=== PATIENT | male | born 1970 | race African-American/Black ===

== ENCOUNTER 2019-06-27 15:32 | Outpatient (CLI) | payer OTHER ==
--- NOTE | 2019-06-27 16:01 | RAD ---
KUB INDICATION: Constipation COMPARISON: 06/27/2003 FINDINGS: Bowel gas: Nonspecific but without overt appearance of obstruction. There is a mild amount retained s tool within the colon. Lung bases: Clear. Additional findings: No suspicious calcification demonstrated. Osseous structures: Compression abnormality of L3 is stable. IMPRESSION: 1. Mild amount retained stool within the colon.
== END 2019-06-27 15:33 | disposition home or self-care (01) ==
LOC: RAD 15:32
PROVIDERS: ATTEND Student in an Organized Health Care Education/Training Program
DX: K59.00 Constipation, unspecified (principal)
CPT/HCPCS: 74018

== ENCOUNTER 2020-11-18 11:56 | Emergency (ER) | payer OTHER | END 2020-11-18 12:21 | disposition left against medical advice (07) | LOC: ERS 11:56 | DX: Z53.21 Procedure and treatment not carried out due to patient leaving prior to being seen by health care provider (principal) ==